=== PATIENT | female | born 1995 | race African-American/Black ===

== ENCOUNTER 2016-10-13 18:49 | Emergency (ER) | payer MEDICAID ==
[~2016-10-13] VITALS: Ht 157.5 cm; Wt 74.0 kg
[2016-10-13] MEDS ORDERED: ACETAMINOPHEN 325 MG TAB PO ONE ×2 (18:53→19:00)
[2016-10-13 18:54] VITALS: BP 69/99
== END 2016-10-13 21:00 | disposition left against medical advice (07) ==
LOC: ER 19:01
DX: R50.9 Fever, unspecified (principal); Z53.21 Procedure and treatment not carried out due to patient leaving prior to being seen by health care provider

== ENCOUNTER 2017-12-31 00:11 | Emergency (ER) | payer MEDICAID ==
[~2017-12-31] VITALS: Ht 157.5 cm; Wt 77.1 kg
[2017-12-31 00:57] LABS: Hematocrit 41.9 % (36.0-46.0); Hemoglobin 14.2 g/dL (12.2-16.2); Mean Corpuscular Hemoglobin 31.1 pg (28.0-32.0); Mean Corpuscular Hgb Conc. 33.9 g/dL (32.0-36.0); Mean Corpuscular Volume 91.6 fL (80.0-100.0); Platelet Count (auto) 207 10^3/uL (140-450); Red Blood Cells 4.57 10^6/uL (4.0-5.20); White Blood Cell 14.4 10^3/uL (4.4-10.8)
[2017-12-31 00:58] LABS: Band Neutrophils % (manual) 0; Basophils % (manual) 0 (0.0-2.0); Blast Cells 0; Eosinophils % (manual) 0 (0-7); Metamyelocytes % 0; Myelocytes % 0; Promyelocytes % 0; Reactive Lymphocytes 0
[2017-12-31 01:01] LABS: Urine Bacteria FEW /hpf (None Seen); Urine Blood Negative /uL (Negative); Urine Mucus FEW (None Seen); Urine WBC 43 /hpf (0 - 5)
[2017-12-31 01:13] LABS: BUN/Creatinine Ratio 14.1; Calcium 8.2 mg/dL (8.5-10.1); Potassium 3.5 mmol/L (3.5-5.1)
[2017-12-31 01:16] LABS: Bilirubin, Total 0.9 mg/dL (0.2-1.0); Total Protein 7.1 g/dL (6.4-8.2)
[2017-12-31 01:20] LABS: Lymphocytes % (manual) 6 (10.0-50.0); Monocytes % (manual) 4 (0-12)
[2017-12-31] MEDS ORDERED: ACETAMINOPHEN 500 MG TAB PO ONE (05:00)
[2017-12-31] MEDS ORDERED: cefTRIAXone 1GM/10ml IVPUSH 10 ML IV ONE (06:30)
[2017-12-31] MEDS ORDERED: SODIUM CHLORIDE 0.9% 1,000 ML IV ONE (06:30)
[2017-12-31 07:32] VITALS: BP 132/71
[2017-12-31] MEDS ORDERED: KETOROLAC TROMETH 60MG/2ML VIAL IM ONE (07:45)
[2017-12-31] MEDS ORDERED: ONDANSETRON HCL 4 MG/2 ML VIAL IV ONE (07:45)
== END 2017-12-31 10:01 | disposition home or self-care (01) ==
LOC: ER 00:15
DX: N20.0 Calculus of kidney (principal); N39.0 Urinary tract infection, site not specified; F12.10 Cannabis abuse, uncomplicated
CPT/HCPCS: 36415; 74176; 80053; 81001; 81025; 83690; 85007; 85027; 96372; 96374; 96375; 99285; J0696; J1885; J2405

== ENCOUNTER 2018-07-16 12:09 | Emergency (ER) | payer MEDICAID ==
[2018-07-16 12:49] VITALS: BP 113/65
[2018-07-16] MEDS ORDERED: cefTRIAXone SOD 1,000 MG VL IM ONE (13:00)
== END 2018-07-16 14:40 | disposition home or self-care (01) ==
LOC: ER 12:09
DX: N39.0 Urinary tract infection, site not specified (principal); F12.90 Cannabis use, unspecified, uncomplicated
CPT/HCPCS: 81002; 81025; 96372; 99283; J0696

== ENCOUNTER → 2019-01-16 | Outpatient (CLI) | payer MEDICAID | END | disposition home or self-care (01) | LOC: LAB 15:00 | PROVIDERS: ATTEND Specialist | DX: R87.810 Cervical high risk human papillomavirus (HPV) DNA test positive (principal) ==

== ENCOUNTER 2020-09-06 10:18 | Emergency (ER) | payer MEDICAID ==
[~2020-09-06] VITALS: Ht 157.5 cm; Wt 72.6 kg
[2020-09-06 10:29] VITALS: BP 120/76
[2020-09-06] MEDS ORDERED: IBUPROFEN 800 MG TAB PO ONE (11:00)
[2020-09-06] MEDS ORDERED: cefTRIAXone SOD 1,000 MG VL IM ONE (11:00)
== END 2020-09-06 11:28 | disposition home or self-care (01) ==
LOC: ER 10:18
DX: N61.0 Mastitis without abscess (principal)
CPT/HCPCS: 96372; 99283; J0696

== ENCOUNTER 2021-07-26 13:18 | Emergency (ER) | payer MEDICAID ==
[~2021-07-26] VITALS: Ht 157.5 cm; Wt 77.1 kg
[2021-07-26 13:45] VITALS: BP 116/74
[2021-07-26 13:47] LABS: Urine Bacteria NONE SEEN /hpf (None Seen); Urine Blood Negative /uL (Negative); Urine Mucus FEW (None Seen); Urine Specific Gravity 1.029 (1.001-1.035); Urine WBC 173 /hpf (0 - 5)
[2021-07-26] MEDS ORDERED: SULF400T11 PO (15:29)
[2021-07-26] MEDS ORDERED: IBUP600T27 PO (15:29)
== END 2021-07-26 15:33 | disposition home or self-care (01) ==
LOC: ER 13:18
DX: N39.0 Urinary tract infection, site not specified (principal); N83.01 Follicular cyst of right ovary; F17.210 Nicotine dependence, cigarettes, uncomplicated; F12.10 Cannabis abuse, uncomplicated; Z32.02 Encounter for pregnancy test, result negative; Z87.442 Personal history of urinary calculi
CPT/HCPCS: 76830; 76856; 81001; 81025

== ENCOUNTER 2022-06-24 17:58 | Emergency (ER) | payer MEDICAID ==
[~2022-06-24] VITALS: Ht 157.5 cm; Wt 78.0 kg
[~2022-06-24 17:58] MED LIST: IBUP600T27 PO; SULF400T11 PO
[2022-06-24] MEDS ORDERED: IBUP800T26 PO (22:18)
[2022-06-24] MEDS ORDERED: KETOROLAC TROMETH 30 MG/ML 1ML VIAL IM ONE (22:30)
[2022-06-24 22:53] VITALS: BP 102/50
== END 2022-06-24 23:11 | disposition home or self-care (01) ==
LOC: ER 17:58
DX: S92.352A Displaced fracture of fifth metatarsal bone, left foot, initial encounter for closed fracture (principal); F17.210 Nicotine dependence, cigarettes, uncomplicated; F12.10 Cannabis abuse, uncomplicated; Z87.442 Personal history of urinary calculi; X50.1XXA Overexertion from prolonged static or awkward postures, initial encounter; Y93.89 Activity, other specified; Y92.89 Other specified places as the place of occurrence of the external cause; Y99.8 Other external cause status
CPT/HCPCS: 73610; 73630; 96372; 99284; J1885